=== PATIENT | female | born 1955 | race Caucasian/White ===

== ENCOUNTER 2017-03-02 07:24 | Day surgery (SDC) | payer OTHER ==
[2017-03-02 08:16] VITALS: BMI 34.7
[2017-03-02] MEDS ORDERED: Propofol 10 mg/ml Inj (20 ML) ONE (09:24)
[2017-03-02] MEDS ORDERED: Lidocaine Hydrochloride 5 ML INJ ONE (09:24)
--- NOTE | 2017-03-02 09:30 | CP.SDSHP ---
Same Day Surgery H & P - History Proposed Procedure: EGD Pre-Op Diagnosis: SEE NOTES - Previous Medical/Surgical History Endocrine/Metabolic: Other Neuro: Other Pain: 4.Moderate Pain - Allergies Allergies: Allergies No Known Allergies Allergy (Verified 08/18/15 08:33) - Physical Exam General Appearance: N Vital Signs: Vital Signs 03/02/17 08:31 Temperature 97.4 F L Pulse Rate 63 Respiratory 19 Rate Blood Pressure 105/87 O2 Sat by Pulse 99 Oximetry Mental Status: Alert & Oriented x3 Neuro: WNL Heart: WNL Lungs: WNL GI: Other - {Optional Preform as Required} Breast: WNL Abdomen: Other Rectal: Other Integument: WNL : WNL Ortho: Other ENT: WNL - Impression Pt. Evaluated Today:Candidate for Anesthesia & Procedure: Yes - Date & Time Time: 09:29 Short Stay Discharge - Short Stay Discharge Admitting Diagnosis/Reason for Visit: DYSPEPSIA Disposition: HOME/ ROUTINE
[2017-03-02] MEDS ORDERED: Belladonna-Phenobarbital PO ONE (10:00)
[2017-03-02 13:45] VITALS: TEMP 96.9
[2017-03-02 13:47] VITALS: RESP 20
[2017-03-02 13:53] VITALS: BP 110/75; PULSE 61; O2SAT 98
== END 2017-03-02 11:15 | disposition home or self-care (01) ==
LOC: C.ENDO 07:24
PROVIDERS: ATTEND Specialist
DX: K29.50 Unspecified chronic gastritis without bleeding (principal); K44.9 Diaphragmatic hernia without obstruction or gangrene; K25.9 Gastric ulcer, unspecified as acute or chronic, without hemorrhage or perforation; B96.81 Helicobacter pylori [H. pylori] as the cause of diseases classified elsewhere
CPT/HCPCS: 43239; 88305; J2704

== ENCOUNTER 2017-03-07 07:46 | Day surgery (SDC) | payer OTHER ==
[2017-03-07 09:26] VITALS: BMI 34.7
[2017-03-07] MEDS ORDERED: Propofol 10 mg/ml Inj (20 ML) ONE ×2 (11:44→11:55)
[2017-03-07] MEDS ORDERED: Lidocaine Hydrochloride 10 ML INJ ONE (11:45)
--- NOTE | 2017-03-07 11:47 | CP.SDSHP ---
Same Day Surgery H & P - History Proposed Procedure: COLONSCOPY Pre-Op Diagnosis: SEE NOTES - Previous Medical/Surgical History Neuro: Other Misc: Other Pain: 4.Moderate Pain - Allergies Allergies: Allergies No Known Allergies Allergy (Verified 08/18/15 08:33) - Physical Exam General Appearance: N Vital Signs: Vital Signs 03/07/17 09:38 Temperature 97.8 F Pulse Rate 64 Respiratory 19 Rate Blood Pressure 109/62 O2 Sat by Pulse 97 Oximetry Mental Status: Alert & Oriented x3 Neuro: WNL Heart: WNL Lungs: WNL GI: Other - {Optional Preform as Required} Breast: WNL Abdomen: Other Rectal: Other Integument: WNL : WNL Ortho: Other ENT: WNL - Impression Pt. Evaluated Today:Candidate for Anesthesia & Procedure: Yes - Date & Time Time: 11:46 Short Stay Discharge - Short Stay Discharge Admitting Diagnosis/Reason for Visit: HEMORRHAGE OF ANUS AND RECTUM Disposition: HOME/ ROUTINE
[2017-03-07] MEDS ORDERED: Belladonna-Phenobarbital PO ONE (12:30)
[2017-03-07 14:07] VITALS: TEMP 97
[2017-03-07 14:10] VITALS: RESP 20; O2SAT 100
[2017-03-07 14:23] VITALS: BP 108/60; PULSE 60
== END 2017-03-07 13:45 | disposition home or self-care (01) ==
LOC: C.ENDO 07:46
PROVIDERS: ATTEND Specialist
DX: D12.7 Benign neoplasm of rectosigmoid junction (principal); K62.5 Hemorrhage of anus and rectum; K58.9 Irritable bowel syndrome, unspecified; K64.8 Other hemorrhoids
CPT/HCPCS: 45388; 88305; J2704

== ENCOUNTER 2017-06-06 07:55 | Day surgery (SDC) | payer OTHER ==
[2017-06-06 08:32] VITALS: BMI 35.3
[2017-06-06 09:13] VITALS: TEMP 97.8
--- NOTE | 2017-06-06 09:46 | CP.SDSHP ---
Same Day Surgery H & P - History Proposed Procedure: EGD Pre-Op Diagnosis: SEE NOTES - Allergies Allergies: Allergies No Known Allergies Allergy (Verified 06/06/17 08:29) - Physical Exam Vital Signs: Vital Signs 06/06/17 06/06/17 09:01 09:42 Temperature 97.8 F 97.8 F Pulse Rate 65 65 Respiratory 20 20 Rate Blood Pressure 135/80 135/80 O2 Sat by Pulse 95 100 Oximetry Mental Status: Alert & Oriented x3 Neuro: Other Heart: Other Lungs: WNL GI: Other - {Optional Preform as Required} Breast: WNL Abdomen: Other Rectal: Other Integument: WNL : WNL Ortho: Other ENT: WNL - Impression Pt. Evaluated Today:Candidate for Anesthesia & Procedure: Yes - Date & Time Time: 09:46 Short Stay Discharge - Short Stay Discharge Admitting Diagnosis/Reason for Visit: ACUTE GASTRIC ULCER WITHOUT HEMORRHAGE OR PERFORAT Disposition: HOME/ ROUTINE
[2017-06-06] MEDS ORDERED: Propofol 10 mg/ml Inj (20 ML) ONE (09:49)
[2017-06-06] MEDS ORDERED: Lidocaine Hydrochloride 5 ML INJ ONE (09:49)
[2017-06-06] MEDS ORDERED: Belladonna-Phenobarbital PO ONE (10:15)
[2017-06-06 10:31] VITALS: PULSE 58; O2SAT 100
[2017-06-06 10:43] VITALS: BP 130/72; RESP 13
== END 2017-06-06 11:35 | disposition home or self-care (01) ==
LOC: C.ENDO 07:55
PROVIDERS: ATTEND Specialist
DX: K29.70 Gastritis, unspecified, without bleeding (principal); K29.80 Duodenitis without bleeding; K44.9 Diaphragmatic hernia without obstruction or gangrene
CPT/HCPCS: 43239; 88305; 88342; J2704